=== PATIENT | female | born 1970 | race Caucasian/White ===

== ENCOUNTER → 2017-02-07 | Outpatient (CLI) | payer BC ==
[~2017-02-07] MED LIST: COREG CR40 MG PO
== END ==
LOC: MC.RAD 06:55
DX: Z12.31 Encounter for screening mammogram for malignant neoplasm of breast (principal)

== ENCOUNTER 2017-09-10 11:00 | Outpatient (RCR) | payer BC | END 2017-09-13 14:26 | disposition home or self-care (01) | LOC: MKS.ESL.PT 11:00 | DX: M54.5 Low back pain (principal) ==

== ENCOUNTER → 2018-05-29 | Outpatient (CLI) | payer BC | LOC: MC.RAD 08:25 | DX: Z12.31 Encounter for screening mammogram for malignant neoplasm of breast (principal) ==

== ENCOUNTER → 2019-07-21 | Outpatient (CLI) | payer BC | LOC: MC.RAD 06-02 08:00 | DX: Z12.31 Encounter for screening mammogram for malignant neoplasm of breast (principal) ==

== ENCOUNTER → 2020-10-12 | Outpatient (CLI) | payer BC | LOC: MC.RAD 10:02 | DX: Z12.31 Encounter for screening mammogram for malignant neoplasm of breast (principal) ==

== ENCOUNTER 2020-12-16 13:00 | Outpatient (RCR) | payer BC | END 2021-01-22 | LOC: PT.GENESIS | DX: M25.511 Pain in right shoulder (principal) ==

== ENCOUNTER 2021-04-05 12:42 | Outpatient (CLI) | payer BC ==
[~2021-04-05] VITALS: Ht 167.6 cm; Wt 109.2 kg
[~2021-04-05 12:42] MED LIST changes: +ASPIRIN 32325 MG/TAB PO; +LIPITOR20 MG PO; +MASON NATURAL2000 IU PO; +MULTI VITAMINS1 TAB PO; +NIASPAN1000 MG PO
[2021-04-05 12:59] VITALS: BP 146/99; PULSE 80; TEMP 98.5
[2021-04-05 14:05] VITALS: BP 131/68; PULSE 78
[2021-04-05 14:15] VITALS: BP 151/79; PULSE 79
[2021-04-05 14:48] LABS: CSF APPEARANCE CLEAR; CSF COLOR COLORLESS; CSF RBC 27 /mm3 (0-0)
[2021-04-05 15:25] VITALS: BP 133/78; PULSE 80
[2021-04-05 16:01] LABS: CSF MONONUCLEAR 100 % (70-100); CSF POLYMORPHONUCLEAR 0 % (0-6)
== END 2021-04-05 18:00 | disposition home or self-care (01) ==
LOC: COL.RAD 12:42
PROVIDERS: Family Medicine
DX: G93.2 Benign intracranial hypertension (principal)

== ENCOUNTER → 2021-12-05 | Outpatient (CLI) | payer BC | LOC: MC.RAD 07:23 | DX: Z12.31 Encounter for screening mammogram for malignant neoplasm of breast (principal) ==